=== PATIENT | male | born 1950 | race Caucasian/White ===

== ENCOUNTER → 2016-11-16 | Outpatient (CLI) | payer MEDICARE | END | disposition home or self-care (01) | LOC: PCVCCLINIC 12:00 | PROVIDERS: ATTEND Internal Medicine Cardiovascular Disease | DX: I25.10 Atherosclerotic heart disease of native coronary artery without angina pectoris (principal); E11.9 Type 2 diabetes mellitus without complications; I25.5 Ischemic cardiomyopathy; E78.1 Pure hyperglyceridemia; I10 Essential (primary) hypertension; Z95.810 Presence of automatic (implantable) cardiac defibrillator | CPT/HCPCS: 80061; 93005; G0463 ==

== ENCOUNTER → 2018-05-02 | Outpatient (CLI) | payer MEDICARE | END | disposition home or self-care (01) | LOC: PCVCCLINIC 15:40 | PROVIDERS: ATTEND Internal Medicine Cardiovascular Disease | DX: I25.10 Atherosclerotic heart disease of native coronary artery without angina pectoris (principal); I25.5 Ischemic cardiomyopathy; I10 Essential (primary) hypertension; E11.9 Type 2 diabetes mellitus without complications; M25.551 Pain in right hip; M25.552 Pain in left hip; F17.210 Nicotine dependence, cigarettes, uncomplicated; Z95.810 Presence of automatic (implantable) cardiac defibrillator; Z79.82 Long term (current) use of aspirin; Z79.84 Long term (current) use of oral hypoglycemic drugs | CPT/HCPCS: 80061; 93005; G0463 ==

== ENCOUNTER → 2018-05-16 | Outpatient (CLI) | payer MEDICARE ==
--- NOTE | 2018-05-16 11:42 | PCVCIMAG ---
EXAM: AORTOILIAC DUPLEX INDICATION: Abdominal aortic aneurysm. FINDINGS: AORTA: Suprarenal aorta measures maximum diameter of 2.4 cm. There is a fusiform infrarenal aortic aneurysm. The infrarenal aorta measures maximum diameter of 2.5 x 3.0 cm. No aortic stenosis. RIGHT COMMON ILIAC ARTERY: Maximum diameter is 1.1 cm. No significant stenosis. RIGHT EXTERNAL ILIAC ARTERY: No significant stenosis. LEFT COMMON ILIAC ARTERY: Maximum diameter is 1.3 cm. No significant stenosis. LEFT EXTERNAL ILIAC ARTERY: No significant stenosis. IMPRESSION: 3.0 cm infrarenal abdominal aortic aneurysm. Interval follow-up in 1 year is suggested. LOC:[id number]
--- NOTE | 2018-05-16 12:11 | PCVCIMAG ---
APPROVED REPORT Study performed: 05/16/2018 10:49:35 Exam: Stress Echocardiogram Indication: CAD s/p WI, ischemic cardiomyopathy, DM Patient Location: Echo lab Stress Nurse: Milla Mead RN Status: routine Ht: 5 ft 10 in HR: 74 bpm BP: 116/76 mmHg Rhythm: NSR Procedure The patient underwent an Exercise Stress Test using the Jamil Protocol. Blood pressure, heart rate, and EKG were monitored. An Echocardiogram was performed by technician terminal and repeater in four stages in quad fashion. At peak stress, four selected images were obtained and placed side by side with resting images for comparison. Stress Test Details Stress Test: Exercise stress testing was performed using a Jamil protocol. HR Resting HR: 74 bpmMax Heart Rate (APMHR): 154 bpm Max HR Achieved: 108 bpmTarget HR (85% APMHR): 130 bpm % of APMHR: 70 Recovery HR: 80 bpm HR response to stress: Normal HR response to stress BP Resting BP: 116/76 mmHg Max BP: 140/70 mmHg Recovery BP: 130/70 mmHg ECG Resting ECG: Sinus Rhythm w/ ST abnormality due to hx of anterior WI Stress ECG: Sinus Rhythm ST Change: Nondiagnostic resting ST abnormalities Arrhythmia: None Recovery ECG: Sinus Rhythm w/ ST abnormality due to hx of anterior WI Recovery ST Change: Normal Recovery Arrhythmia: None Clinical Reason for Termination: Leg pain, dyspnea Stress Symptoms: dyspnea, limiting leg/hip pain Exercise duration: 4 min 40 sec Highest Stage Achieved: Stage 2: 2.5 mph at 12% grade. Exercise capacity: 7 METs Overall Exercise Capacity for Age: Poor Scale: Active Angina Score: None Pre-Stress Echo The resting Echocardiogram showed abnormal left ventricular contractility with an estimated Ejection Fraction of about 40%. 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 Post-Stress Echo The stress Echocardiogram showed abnormal left ventricular contractility with an estimated Ejection Fraction of about 40-45%. 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 No new wall motion abnormality. Clinical No clinical evidence for ischemia. Conclusion Clinical Response: Non-ischemic Exercise Capacity: Below Average Stress ECG Response: Equivocal Stress Echo Images: Non-ischemic Normal stress echocardiogram with submaximal exercise stress. Non-diagnostic study due to inability of the patient to achieve 85% of maximal HR. Other Information Study Quality: Adequate <Conclusion> Normal stress echocardiogram with submaximal exercise stress. Non-diagnostic study due to inability of the patient to achieve 85% of maximal HR.
--- NOTE | 2018-05-16 12:45 | PCVCIMAG ---
EXAM: BILATERAL LOWER EXTREMITY ARTERIAL DUPLEX INDICATION: Peripheral Arterial Disease. Leg pain. FINDINGS: Right Leg: Satisfactory arterial waveforms throughout the common/profunda/superficial femoral, popliteal, anterior tibial, peroneal, and posterior tibial arteries. No flow limiting stenosis seen. Left Leg: Common femoral and profunda femoral arteries are patent. Increased systolic velocity 236 cm/s mid/distal [place] superficial femoral artery consistent with 40-50% stenosis. The anterior tibial, peroneal, and posterior tibial arteries are patent. IMPRESSION: No flow limiting stenosis in the right lower extremity. No flow limiting stenosis in the left lower extremity. 40-50% stenosis mid/distal [place] left superficial femoral artery. LOC:[id number]
== END | disposition home or self-care (01) ==
LOC: PCVCIMAG 10:29
PROVIDERS: ATTEND Internal Medicine Cardiovascular Disease
DX: I73.9 Peripheral vascular disease, unspecified (principal); I71.4 Abdominal aortic aneurysm, without rupture; I25.10 Atherosclerotic heart disease of native coronary artery without angina pectoris; E11.9 Type 2 diabetes mellitus without complications; I25.2 Old myocardial infarction; I25.5 Ischemic cardiomyopathy
CPT/HCPCS: 93325; 93351; 93925; 93978